=== PATIENT | male | born 1985 | race Caucasian/White ===

== ENCOUNTER → 2016-06-25 | Outpatient (REF) ==
[~2016-06-25] MED LIST: NO HOME MEDICATIONS; NORCO 325 MG-51 TAB PO; NORCO 325 MG-7.1 TAB PO; PERCOCET 325 MG1 TA2 PO; ULTRAM 50MG TAB50 MG PO; ZOFRAN8 MG PO
== END ==
LOC: WSOH 08:31
DX: Z02.83 Encounter for blood-alcohol and blood-drug test (principal)

== ENCOUNTER → 2017-02-01 | Outpatient (CLI) | payer OTHER | LOC: COL.PUL 10:00 | DX: R05 Cough (principal); R06.2 Wheezing; F17.200 Nicotine dependence, unspecified, uncomplicated ==

== ENCOUNTER 2017-04-25 22:26 | Emergency (ER) | payer OTHER ==
[~2017-04-25] VITALS: Ht 182.9 cm; Wt 95.5 kg
[2017-04-25 22:39] VITALS: BP 121/75; TEMP 98
[2017-04-25] MEDS ORDERED: NEURONTIN300 MG/CAP (22:42)
[2017-04-25 23:47] LABS: C-REACTIVE PROTEIN < 0.5 mg/dL (0.0-0.9)
[2017-04-26] MEDS ORDERED: MOBIC 7.5MG7.5 MG PO (00:04)
[2017-04-26 00:20] VITALS: PULSE 82
== END 2017-04-26 00:21 | disposition home or self-care (01) ==
LOC: COL.ER 22:26
PROVIDERS: Nurse Practitioner Primary Care
DX: M79.674 Pain in right toe(s) (principal); F17.210 Nicotine dependence, cigarettes, uncomplicated

== ENCOUNTER → 2017-08-05 | Outpatient (CLI) | payer OTHER ==
[~2017-08-05] MED LIST changes: +MOBIC 7.5MG7.5 MG PO; +NEURONTIN300 MG/CAP
== END ==
LOC: COL.RAD 14:00
DX: M51.27 Other intervertebral disc displacement, lumbosacral region (principal); M48.061 Spinal stenosis, lumbar region without neurogenic claudication

== ENCOUNTER → 2017-08-10 | Outpatient (CLI) | payer OTHER | LOC: MHCPAIN 08:15 | DX: G89.29 Other chronic pain (principal); M47.817 Spondylosis without myelopathy or radiculopathy, lumbosacral region; M54.16 Radiculopathy, lumbar region; M43.16 Spondylolisthesis, lumbar region | CPT/HCPCS: G0463 ==

== ENCOUNTER → 2017-08-11 | Outpatient (CLI) | payer OTHER | LOC: COL.RAD 16:04 | DX: M43.16 Spondylolisthesis, lumbar region (principal); M46.86 Other specified inflammatory spondylopathies, lumbar region; M51.37 Other intervertebral disc degeneration, lumbosacral region ==

== ENCOUNTER → 2017-08-26 | Outpatient (CLI) | payer OTHER | LOC: MHCPAIN 08:36 | DX: M47.817 Spondylosis without myelopathy or radiculopathy, lumbosacral region (principal); M43.16 Spondylolisthesis, lumbar region | CPT/HCPCS: J1100 ==

== ENCOUNTER → 2017-09-08 | Outpatient (CLI) | payer OTHER | LOC: MHCPAIN 12:50 | DX: G89.29 Other chronic pain (principal); M47.817 Spondylosis without myelopathy or radiculopathy, lumbosacral region; M54.16 Radiculopathy, lumbar region; M53.3 Sacrococcygeal disorders, not elsewhere classified | CPT/HCPCS: G0463 ==

== ENCOUNTER 2017-09-10 02:47 | Emergency (ER) | payer OTHER ==
[~2017-09-10] VITALS: Ht 182.9 cm; Wt 100.8 kg
[2017-09-10 02:50] VITALS: TEMP 97.1
[2017-09-10 03:24] LABS: COLLECTION METHOD CLEAN CATCH
[2017-09-10 03:26] LABS: BASO # 0.1 (0.0-0.2); BASO % 0.7 % (0.0-2.0); EOS # 0.2 (0.0-0.7); EOS % 2.7 % (0-4.0); GRAN # 3.9 (1.4-6.5); GRAN % 52.1 % (42.2-75.2); HEMOGLOBIN 15.6 g/dl (13.5-18.0); LYMPH # 2.6 (1.2-3.4); LYMPH % 35.1 % (20.0-51.0); MEAN CELL VOLUME 90 fl (80.0-100.0); MEAN CORPUSCULAR HEMOGLOBIN 33 pg (27.0-31.0); MEAN CORPUSCULAR HGB CONC 36 g/dl (33.0-37.0); MEAN PLATELET VOLUME 8.9 fl (7.4-10.4); MONO # 0.7 (0.1-0.6); MONO % 9.3 % (1.7-9.3); PLATELET COUNT 240 K/mm3 (130-400); RED BLOOD COUNT 4.79 M/mm3 (4.20-5.60); REDCELL DISTRIBUTION WIDTH-CV 11.3 % (11.5-14.5)
[2017-09-10 03:29] LABS: PH 6 (5-8); SQUAMOUS EPITHELIAL None Seen /hpf; URINE APPEARANCE Clear; URINE BACTERIA None Seen /hpf; URINE BILIRUBIN Negative (NEGATIVE); URINE BLOOD Negative (NEGATIVE); URINE COLOR Straw; URINE GLUCOSE Negative (NEGATIVE); URINE KETONE Negative (NEGATIVE); URINE LEUKOCYTE ESTERASE Negative (NEGATIVE); URINE NITRATE Negative (NEGATIVE); URINE PROTEIN(semi-quant) Negative (NEGATIVE); URINE RBC None Seen /hpf; URINE UROBILINOGEN Negative (NEGATIVE)
[2017-09-10 03:38] LABS: ALANINE AMINOTRANSFERASE 37 U/L (21-72); ALBUMIN 3.7 gm/dL (3.5-5.0); ALKALINE PHOSPHATASE 72 U/L (50-136); ANION GAP 11 mmol/L (7-16); AST,SGOT 24 U/L (15-37); BILIRUBIN,TOTAL 0.6 mg/dL (0.0-1.0); BLOOD UREA NITROGEN 11 mg/dL (9-20); C-REACTIVE PROTEIN < 0.5 mg/dL (0.0-0.9); CALCIUM 9.1 mg/dL (8.4-10.2); CARBON DIOXIDE 26 mmol/L (22-30); CHLORIDE 104 mmol/L (98-107); CREATININE, serum 0.88 mg/dL (0.66-1.25); GLUCOSE 107 mg/dL (74-106); LIPASE 44 U/L (23-300); POTASSIUM 3.8 mmol/L (3.4-5.0); SODIUM 141 mmol/L (137-145); TOTAL PROTEIN 7.1 gm/dL (6.4-8.2)
[2017-09-10 04:51] VITALS: BP 139/95; PULSE 75
== END 2017-09-10 04:51 | disposition home or self-care (01) ==
LOC: COL.ER 02:47
PROVIDERS: Family Medicine
DX: K29.70 Gastritis, unspecified, without bleeding (principal); Z90.89 Acquired absence of other organs
CPT/HCPCS: C9113; J1170; J2405; J7030; Q9967

== ENCOUNTER → 2017-09-23 | Outpatient (CLI) | payer OTHER | LOC: MHCPAIN 12:47 | DX: M47.817 Spondylosis without myelopathy or radiculopathy, lumbosacral region (principal); M46.96 Unspecified inflammatory spondylopathy, lumbar region | CPT/HCPCS: J1040; Q9967 ==

== ENCOUNTER → 2017-10-22 | Outpatient (CLI) | payer OTHER | LOC: MHCPAIN 10:54 | DX: G89.29 Other chronic pain (principal); M47.817 Spondylosis without myelopathy or radiculopathy, lumbosacral region; M54.16 Radiculopathy, lumbar region; M53.3 Sacrococcygeal disorders, not elsewhere classified; M43.16 Spondylolisthesis, lumbar region | CPT/HCPCS: G0463 ==

== ENCOUNTER → 2017-10-28 | Outpatient (CLI) | payer OTHER | LOC: MHCPAIN 13:12 | DX: M47.817 Spondylosis without myelopathy or radiculopathy, lumbosacral region (principal); M43.16 Spondylolisthesis, lumbar region; M46.96 Unspecified inflammatory spondylopathy, lumbar region | CPT/HCPCS: J1040; J2250; J3010; Q9967 ==

== ENCOUNTER → 2017-12-10 | Outpatient (CLI) | payer OTHER | LOC: MHCPAIN 11:25 | DX: G89.29 Other chronic pain (principal); M47.817 Spondylosis without myelopathy or radiculopathy, lumbosacral region; M54.16 Radiculopathy, lumbar region; M53.3 Sacrococcygeal disorders, not elsewhere classified | CPT/HCPCS: G0463 ==

== ENCOUNTER 2017-12-16 12:10 | Emergency (ER) | payer OTHER ==
[~2017-12-16] VITALS: Ht 182.9 cm; Wt 100.0 kg
[2017-12-16 12:21] VITALS: TEMP 98.2
[2017-12-16] MEDS ORDERED: NEURONTIN300 MG/CAP PO (12:23)
[2017-12-16] MEDS ORDERED: NORCO 325 MG-7.1 TAB PO (12:56)
[2017-12-16 13:03] VITALS: BP 129/72; PULSE 68
== END 2017-12-16 13:07 | disposition home or self-care (01) ==
LOC: COL.ER 12:10
DX: G89.29 Other chronic pain (principal); M54.5 Low back pain; F17.210 Nicotine dependence, cigarettes, uncomplicated

== ENCOUNTER → 2018-01-17 | Outpatient (CLI) | payer OTHER ==
[~2018-01-17] MED LIST changes: +NEURONTIN300 MG/CAP PO
== END ==
LOC: MHCPAIN 08:21
DX: G89.29 Other chronic pain (principal); M47.817 Spondylosis without myelopathy or radiculopathy, lumbosacral region; M54.16 Radiculopathy, lumbar region; M53.3 Sacrococcygeal disorders, not elsewhere classified
CPT/HCPCS: G0463

== ENCOUNTER → 2018-04-20 | Outpatient (CLI) | payer OTHER | LOC: MHCPAIN 08:08 | DX: G89.29 Other chronic pain (principal); M47.817 Spondylosis without myelopathy or radiculopathy, lumbosacral region; M54.16 Radiculopathy, lumbar region; M53.3 Sacrococcygeal disorders, not elsewhere classified; M96.1 Postlaminectomy syndrome, not elsewhere classified; M47.814 Spondylosis without myelopathy or radiculopathy, thoracic region | CPT/HCPCS: G0463 ==

== ENCOUNTER → 2018-04-22 | Outpatient (CLI) | payer OTHER | LOC: COL.RAD 12:58 | DX: Z01.818 Encounter for other preprocedural examination (principal) ==

== ENCOUNTER 2018-05-28 00:44 | Emergency (ER) | payer OTHER ==
[~2018-05-28] VITALS: Ht 182.9 cm; Wt 97.7 kg
[2018-05-28 00:51] VITALS: BP 128/73; TEMP 99.8
[2018-05-28] MEDS ORDERED: DAZIDOX10 MG PO (01:17)
[2018-05-28 02:09] LABS: BASO % 0.4 % (0.0-2.0); EOS # 0.3 (0.0-0.7); EOS % 3.7 % (0-4.0); GRAN # 4.4 (1.4-6.5); GRAN % 59.2 % (42.2-75.2); HEMATOCRIT 37.5 % (42.0-52.0); HEMOGLOBIN 13.1 g/dl (13.5-18.0); LYMPH # 1.8 (1.2-3.4); LYMPH % 24.3 % (20.0-51.0); MEAN CELL VOLUME 92 fl (80.0-100.0); MEAN CORPUSCULAR HEMOGLOBIN 32 pg (27.0-31.0); MEAN CORPUSCULAR HGB CONC 35 g/dl (33.0-37.0); MEAN PLATELET VOLUME 8.9 fl (7.4-10.4); MONO # 0.9 (0.1-0.6); MONO % 12.3 % (1.7-9.3); PLATELET COUNT 217 K/mm3 (130-400); RED BLOOD COUNT 4.07 M/mm3 (4.20-5.60); REDCELL DISTRIBUTION WIDTH-CV 11.3 % (11.5-14.5)
[2018-05-28 02:24] LABS: ALBUMIN 3.7 gm/dL (3.5-5.0); BILIRUBIN,TOTAL 0.3 mg/dL (0.0-1.0); C-REACTIVE PROTEIN 2.3 mg/dL (0.0-0.9); CREATININE, serum 0.88 mg/dL (0.66-1.25); TOTAL PROTEIN 6.6 gm/dL (6.4-8.2)
[2018-05-28] MEDS ORDERED: PERCOCET 325 MG1 TA2 PO (05:14)
[2018-05-28 05:30] VITALS: PULSE 81
== END 2018-05-28 05:30 | disposition home or self-care (01) ==
LOC: COL.ER 00:44
PROVIDERS: Physician Assistant
DX: L02.31 Cutaneous abscess of buttock (principal); F17.210 Nicotine dependence, cigarettes, uncomplicated
CPT/HCPCS: J3010; Q9967

== ENCOUNTER → 2018-06-08 | Outpatient (CLI) | payer OTHER ==
[~2018-06-08] MED LIST changes: +DAZIDOX10 MG PO
== END ==
LOC: COL.RAD 11:14
DX: M43.16 Spondylolisthesis, lumbar region (principal); M51.36 Other intervertebral disc degeneration, lumbar region; M48.061 Spinal stenosis, lumbar region without neurogenic claudication; Z98.1 Arthrodesis status

== ENCOUNTER → 2018-07-14 | Outpatient (CLI) | payer OTHER | LOC: COL.RAD 09:12 | DX: M48.061 Spinal stenosis, lumbar region without neurogenic claudication (principal) ==

== ENCOUNTER → 2019-01-11 | Outpatient (CLI) | payer OTHER | LOC: COL.PUL 08:00 | DX: R05 Cough (principal); R06.2 Wheezing; F17.210 Nicotine dependence, cigarettes, uncomplicated ==

== ENCOUNTER 2019-03-06 08:00 | Outpatient (RCR) | payer OTHER | END 2019-04-17 16:23 | disposition home or self-care (01) | LOC: WSC 08:00 | DX: M54.5 Low back pain (principal) ==

== ENCOUNTER → 2019-04-27 | Outpatient (CLI) | payer OTHER | LOC: COL.PUL 03-24 13:00 | DX: R06.02 Shortness of breath (principal); F17.210 Nicotine dependence, cigarettes, uncomplicated | CPT/HCPCS: J7674 ==

== ENCOUNTER 2019-09-03 00:57 | Emergency (ER) | payer OTHER ==
[~2019-09-03] VITALS: Ht 182.9 cm; Wt 90.9 kg
[2019-09-03 04:02] VITALS: BP 150/70; PULSE 80; TEMP 98
== END 2019-09-03 03:57 | disposition home or self-care (01) ==
LOC: COL.ER 00:57
DX: S43.005A Unspecified dislocation of left shoulder joint, initial encounter (principal); W01.0XXA Fall on same level from slipping, tripping and stumbling without subsequent striking against object, initial encounter; Y92.009 Unspecified place in unspecified non-institutional (private) residence as the place of occurrence of the external cause
CPT/HCPCS: J1885; J2704; Q4050

== ENCOUNTER 2019-09-03 19:59 | Emergency (ER) | payer OTHER ==
[~2019-09-03] VITALS: Ht 182.9 cm; Wt 90.9 kg
[2019-09-03 20:14] VITALS: BP 128/82; TEMP 98.7
[2019-09-03 21:36] VITALS: PULSE 80
== END 2019-09-03 21:36 | disposition home or self-care (01) ==
LOC: COL.ER 19:59
DX: M25.512 Pain in left shoulder (principal); G89.29 Other chronic pain; M54.9 Dorsalgia, unspecified; F17.210 Nicotine dependence, cigarettes, uncomplicated
CPT/HCPCS: J1170; J1885

== ENCOUNTER → 2019-12-14 | Outpatient (CLI) | payer OTHER | LOC: COL.RAD | DX: G96.19 Other disorders of meninges, not elsewhere classified (principal); M96.1 Postlaminectomy syndrome, not elsewhere classified; Z98.1 Arthrodesis status | CPT/HCPCS: A9585 ==

== ENCOUNTER → 2020-01-09 | Outpatient (CLI) | payer OTHER | LOC: COL.RAD 12:25 | DX: M43.16 Spondylolisthesis, lumbar region (principal); Z98.1 Arthrodesis status; Z98.890 Other specified postprocedural states ==

== ENCOUNTER 2020-02-22 10:16 | Emergency (ER) | payer OTHER ==
[~2020-02-22] VITALS: Ht 182.9 cm; Wt 95.5 kg
[2020-02-22 10:58] LABS: COLLECTION METHOD CLEAN CATCH
[2020-02-22 11:12] LABS: BASO % 0.3 % (0.0-2.0); EOS % 0.2 % (0-4.0); GRAN # 6.8 (1.4-6.5); GRAN % 73.5 % (42.2-75.2); HEMATOCRIT 46.6 % (42.0-52.0); HEMOGLOBIN 16.2 g/dl (13.5-18.0); LYMPH # 1.8 (1.2-3.4); LYMPH % 19.6 % (20.0-51.0); MEAN CELL VOLUME 91 fl (80.0-100.0); MEAN CORPUSCULAR HEMOGLOBIN 32 pg (27.0-31.0); MEAN CORPUSCULAR HGB CONC 35 g/dl (33.0-37.0); MEAN PLATELET VOLUME 8.6 fl (7.4-10.4); MONO # 0.6 (0.1-0.6); MONO % 6.2 % (1.7-9.3); PLATELET COUNT 373 K/mm3 (130-400); RED BLOOD COUNT 5.15 M/mm3 (4.20-5.60); REDCELL DISTRIBUTION WIDTH-CV 12.2 % (11.5-14.5)
[2020-02-22 11:12] LABS: PH 6 (5-8); SQUAMOUS EPITHELIAL 0-2 /hpf; URINE APPEARANCE Clear; URINE BACTERIA None Seen /hpf; URINE BILIRUBIN Negative (NEGATIVE); URINE BLOOD Negative (NEGATIVE); URINE COLOR Yellow; URINE GLUCOSE Negative (NEGATIVE); URINE KETONE Negative (NEGATIVE); URINE LEUKOCYTE ESTERASE Negative (NEGATIVE); URINE NITRATE Negative (NEGATIVE); URINE PROTEIN(semi-quant) Negative (NEGATIVE); URINE RBC 0-2 /hpf; URINE UROBILINOGEN Negative (NEGATIVE)
[2020-02-22 11:27] LABS: TRICYCLIC ANTIDEPRESS URINE NEGATIVE
[2020-02-22 11:31] LABS: ALANINE AMINOTRANSFERASE 33 U/L (4-49); ALBUMIN 4.7 gm/dL (3.5-5.0); ALKALINE PHOSPHATASE 97 U/L (50-136); ANION GAP 11 mmol/L (7-16); AST,SGOT 35 U/L (15-37); BILIRUBIN,TOTAL 0.8 mg/dL (0.0-1.0); BLOOD UREA NITROGEN 10 mg/dL (9-20); CALCIUM 9.8 mg/dL (8.4-10.2); CARBON DIOXIDE 26 mmol/L (22-30); CHLORIDE 105 mmol/L (98-107); CREATININE, serum 0.89 (0.66-1.25); GLUCOSE 106 mg/dL (74-106); POTASSIUM 3.3 mmol/L (3.4-5.0); SODIUM 142 mmol/L (137-145); TOTAL PROTEIN 8.2 gm/dL (6.4-8.2)
[2020-02-22 11:40] LABS: ACETAMINOPHEN < 10 ug/mL (10-30); ALCOHOL(ethanol),MEDICAL < 10 mg/dL; SALICYLATE < 1.0 mg/dL
[2020-02-22 12:00] LABS: TSH w REFLEX 0.084 uIU/mL (0.465-4.680)
[2020-02-22 19:14] VITALS: BP 123/87; PULSE 85; TEMP 98
== END 2020-02-22 19:15 ==
LOC: COL.ER 10:16
PROVIDERS: Physician Assistant
DX: R45.851 Suicidal ideations (principal); F32.9 Major depressive disorder, single episode, unspecified; F17.210 Nicotine dependence, cigarettes, uncomplicated; Z20.828 Contact with and (suspected) exposure to other viral communicable diseases
CPT/HCPCS: J1885

== ENCOUNTER 2020-07-29 08:37 | Emergency (ER) | payer OTHER ==
[~2020-07-29] VITALS: Ht 182.9 cm; Wt 97.7 kg
[2020-07-29 08:56] VITALS: TEMP 98
[2020-07-29 10:30] VITALS: BP 136/92; PULSE 83
== END 2020-07-29 10:30 | disposition home or self-care (01) ==
LOC: COL.ER 08:37
DX: J06.9 Acute upper respiratory infection, unspecified (principal); G89.29 Other chronic pain; M54.9 Dorsalgia, unspecified; Z79.891 Long term (current) use of opiate analgesic; Z20.822 Contact with and (suspected) exposure to COVID-19
CPT/HCPCS: J1885